=== PATIENT | male | born 1980 | race Caucasian/White ===

== ENCOUNTER 2016-11-11 11:39 | Emergency (ER) | payer SELFPAY ==
[~2016-11-11] VITALS: Ht 172.7 cm; Wt 76.8 kg
[2016-11-11 13:32] LABS: ADD MIUA? NO; BILIRUBIN NEGATIVE; BLOOD NEGATIVE; COLOR YELLOW ((YELLOW)); GLUCOSE (STRIP) NEGATIVE; KETONES NEGATIVE; LEUKOCYTES NEGATIVE; NITRITE NEGATIVE; PROTEIN (STRIP) NEGATIVE; SPECIFIC GRAVITY 1.016 (1.000-1.030); UROBILINOGEN 0.2 MG/DL (0.2-1.0)
[2016-11-11 13:34] LABS: HEMATOCRIT 39.3 % (38.0-50.0); MCH 30.1 PG (29.0-34.0); MCHC 33.3 G/DL (30.0-36.0); MCV 90.3 FL (86-99); MEAN PLAT.VOLUME 8.8 uM^3 (9.0-12.4); PLATELET COUNT 271 K/uL (156-360); RBC DIS.WIDTH-CV 12.3 % (11.8-14.6); RBC DIS.WIDTH-SD 41.3 % (39-53); RED BLOOD COUNT 4.35 M/uL (4.00-5.50); WHITE BLOOD COUNT 6.2 K/uL (4.1-10.2)
[2016-11-11 13:45] LABS: CHLORIDE 110 mEq/L (99-109); POTASSIUM 3.7 mEq/L (3.7-5.4); SODIUM 140 mEq/L (136-147)
[2016-11-11 13:47] LABS: GLUCOSE 125 mg/dL (70-99)
[2016-11-11 13:48] LABS: ANION GAP 7 MEQ/L (2-14)
[2016-11-11 13:49] LABS: TOTAL BILIRUBIN 0.2 mg/dL (0.0-1.0)
[2016-11-11 13:50] LABS: ALKALINE PHOSPHATASE 63 IU/L (3-129)
[2016-11-11 13:51] LABS: GFR ESTIMATE (CALCULATED) > 59 mL/min/
[2016-11-11 13:52] LABS: UREA NITROGEN (BUN) 16 mg/dL (9-23)
[2016-11-11 13:54] LABS: LIPASE 25 U/L (1.0-51.0)
[2016-11-11] MEDS ORDERED: NAPROSYN500 MG PO (14:35)
[2016-11-11 14:55] VITALS: BP 139/86
== END 2016-11-11 14:22 | disposition home or self-care (01) ==
LOC: EME 11:39
PROVIDERS: Nurse Practitioner Family
DX: R10.9 Unspecified abdominal pain (principal); F17.200 Nicotine dependence, unspecified, uncomplicated; R73.9 Hyperglycemia, unspecified; R51 Headache; R21 Rash and other nonspecific skin eruption; M51.36 Other intervertebral disc degeneration, lumbar region
CPT/HCPCS: 74176; 80053; 81003; 83690; 85027; 99281; 99284; J1885; J7030